=== PATIENT | female | born 1980 | race Caucasian/White ===

== ENCOUNTER 2022-06-19 07:49 | Emergency (ER) | payer SELFPAY ==
--- NOTE | 2022-06-19 07:50 | XR_ITS ---
WS: [id number] XR chest 1V portable [id number] REASON FOR EXAM: cp FINDINGS: Mild tortuosity the thoracic aorta. Normal heart size. Calcified granulomatous disease bilaterally. Flattening of the left hemidiaphragm contour with blunting of the left costophrenic angle. Presumed o ld post inflammatory change. No acute/subacute pulmonary parenchymal abnormality or pleural abnormality. No significant abnormality of the bony thorax. XR/XR chest 1V portable [id number] IMPRESSION: No acute chest abnormality.
[2022-06-19 07:58] VITALS: BP 136/83; PULSE 78; RESP 18; TEMP 36.5; O2SAT 100; BMI 26.4
--- NOTE | 2022-06-19 08:06 | ECG_ITS ---
[facility] Test Date: 2022-06-19 Pat Name: India Aburto Department: Room: Gender: Female It Sales Consultant: : 1980 Requested By: Spencer Ramos Order Number: [id number] Roby MD: Sumaya Narayanan M.D. Measurements Intervals [place] Rate: 79 P: -2 KS: 140 QRS: 78 QRSD: 90 T: 51 QT: 366 QTc: 422 Interpretive Statements SINUS RHYTHM WITH SINUS ARRHYTHMIA No previous ECG available for comparison Electronically Signed On 06-20-2022 0:16:48 CDT by Sumaya Narayanan M.D. [email or web address] Servicesmer[id number]
--- NOTE | 2022-06-19 08:16 | W.ED.CHESTPA ---
Documented by User: FREDDIE Jimenez 06/19/22 15:23 HPI - Chest Pain General: Chief Complaint: Chest Pain Stated Complaint: chest tightness Time Seen by Provider: 06/19/22 07:50 History of Present Illness: Patient is a 41-year-old female comes to the ED with chest pain. Patient has a history of factor V Leiden and pulmonary embolism. Chest pain started this morning while she was lying down in bed. Chest pain described as as a chest heaviness in the middle of chest. She rates the pain currently a 8 out of 10. Denies any improving or worsening factors. Endorses lightheadedness and palpitations. Patient injured her left calf while exercising approximately 4 days ago. Since injury, Denies being bedridden for the past couple days, but does endorse being less active for the past couple days. Patient does have medical marijuana card and uses that to help with her anxiety. denies fevers, shortness of breath, nausea/vomiting, bladder or bowel symptoms. Associated symptoms: Reports palpitations; Deny abdominal pain, dyspnea, fever(s), nausea or vomiting Review of Systems Const: Denies: fever(s), chills or fatigue Eyes: Denies: change in vision or eye discomfort ENMT: Denies: throat pain, odynophagia, nasal discharge or nasal congestion Card: Reports: chest pain, palpitations and lightheadedness; Denies: edema, swelling of feet/ankles, dyspnea on exertion or orthopnea Resp: Denies: dyspnea, productive cough or non-productive cough GI: Denies: abdominal pain, nausea, vomiting, diarrhea, constipation or hematochezia : Denies: flank pain, dysuria or hematuria Musc: Denies: neck pain, back pain or extremity swelling Skin/Breast: Denies: rash or new lesions Neuro: Denies: headache(s), numbness in extremities or weakness in extremities PFS ED PFSH: Medical History Factor 5 Leiden mutation, heterozygous Pulmonary embolism Surgical History No pertinent past surgical history Physical Exam Const: COMMON NORMALS: patient oriented x3 and alert GENERAL APPEARANCE: cooperative HENMT: COMMON NORMALS: normocephalic HEAD & SCALP: normocephalic MOUTH: Normal oral and palatal mucosa present THROAT: posterior oropharynx normal and uvula midline Neck/C-Spine: COMMON NORMALS: supple GENERAL: Yes normal visual inspection Resp: COMMON NORMALS: normal respiratory effort, No retractions, No use of accessory muscles and clear to auscultation bilaterally AUSCULTATION: clear to auscultation bilaterally Cardio: COMMON NORMALS: regular rate, regular rhythm, S1 normal heart sound present, S2 normal heart sound present, No gallops present (Cardio), No clicks present (Cardio), No murmurs present (Cardio) and Peripheral pulses 2+ throughout RATE: regular rate RHYTHM: regular rhythm HEART SOUNDS: S1 normal heart sound present and S2 normal heart sound present PERIPHERAL PULSES: Peripheral pulses 2+ throughout GI: COMMON NORMALS: Normal to inspection, nondistended, normoactive bowel sounds present, Soft to palpation, non-tender and no masses PALPATION: Yes Soft to palpation : COMMON NORMALS: Yes no CVA tenderness BLADDER/KIDNEY EXAM: Yes no CVA tenderness Back/Pelvis: COMMON NORMALS: no CVA tenderness Extremity: COMMON NORMALS: normal to inspection Neuro: COMMON NORMALS: patient oriented x3 SENSORIUM/ORIENTATION: Yes alert GAIT: Yes Normal gait present Skin: GENERAL SKIN EXAM: dry skin Course Vital Signs: Vital signs: Vital Signs Temperature 97.7 F 06/19/22 07:58 Pulse Rate 75 06/19/22 10:30 Respiratory Rate 14 06/19/22 10:30 Blood Pressure 119/71 06/19/22 10:30 Pulse Oximetry 98 06/19/22 10:30 Oxygen Delivery Me thod 06/19/22 10:30 MDM - Chest Pain Medical Decision Making Patient is a 41-year-old female comes to the ED with chest pain. Patient has a history of factor V Leiden and pulmonary embolism. Chest pain started this morning while she was lying down in bed. Chest pain described as as a chest heaviness in the middle of chest. She rates the pain currently a 8 out of 10. Denies any improving or worsening factors. Endorses lightheadedness and palpitations. Patient injured her left calf while exercising approximately 4 days ago. Since injury, Denies being bedridden for the past couple days, but does endorse being less active for the past couple days. Patient does have medical marijuana card and uses that to help with her anxiety. denies fevers, shortness of breath, nausea/vomiting, bladder or bowel symptoms. Vitals are stable. Exam is benign. CBC and CMP are unremarkable. D-dimer 1.33. hCG negative. Troponins negative. Chest x-ray showed no acute findings. Chest CTA showed no PE and no pneumonia. Patient was diagnosed with atypical chest pain and was stable for discharge home. I placed an order with case management for patient to be referred to get established with a primary care physician. Return to ED precautions given. Patient understood and agreed with plan. Lab Data I reviewed the patient's lab results. 06/19/22 08:15 06/19/22 08:15 Radiology Impressions Chest X-Ray 06/19/22 07:50 IMPRESSION: No acute chest abnormality. Chest CTA 06/19/22 08:42 IMPRESSION: 1. No pulmonary embolism. 2. No pneumonia. Laboratory Results WBC 6.0 10^3/uL (4.0-10.0) 06/19/22 08:15 RBC 4.63 10^6/uL (4.1-5.3) 06/19/22 08:15 Hgb 14.4 g/dL (11.5-15.3) 06/19/22 08:15 Hct 43.7 % (37.0-47.0) 06/19/22 08:15 MCV 94.4 fl (81-99) 06/19/22 08:15 MCH 31.1 pg (28.0-34.0) 06/19/22 08:15 MCHC 33.0 g/dL (30.0-36.0) 06/19/22 08:15 RDW 12.4 % (12.1-15.1) 06/19/22 08:15 Plt Count 236 10^3/cmm (130-400) 06/19/22 08:15 MPV 10.1 fL (7.4-10.4) 06/19/22 08:15 Neut % (Auto) 58.0 % 06/19/22 08:15 Lymph % (Auto) 32.4 % 06/19/22 08:15 Sampson % (Auto) 7.2 % 06/19/22 08:15 Eos % (Auto) 1.3 % 06/19/22 08:15 Baso % (Auto) 0.8 % 06/19/22 08:15 Neut # (Auto) 3.46 10^3/uL (1.8-7.7) 06/19/22 08:15 Lymph # (Auto) 1.9 10^3/uL (0.8-4.8) 06/19/22 08:15 Sampson # (Auto) 0.4 10^3/uL (0.2-0.9) 06/19/22 08:15 Eos # (Auto) 0.1 10^3/uL (0.0-0.8) 06/19/22 08:15 Baso # (Auto) 0.1 10^3/uL (0.0-0.1) 06/19/22 08:15 Nucleated RBC % (auto) 0 % 06/19/22 08:15 Nucleated RBCs # 0.0 /100WBC 06/19/22 08:15 D-Dimer 1.33 ug/mIFEU (0-0.59) H 06/19/22 08:15 Sodium 138 mmol/L (136-145) 06/19/22 08:15 Potassium 3.4 mmol/L (3.5-5.1) L 06/19/22 08:15 Chloride 100 mmol/L (98-107) 06/19/22 08:15 Carbon Dioxide 25 mmol/L (22-29) 06/19/22 08:15 Anion Gap 16.4 (5-19) 06/19/22 08:15 BUN 7 mg/dL (6-20) 06/19/22 08:15 Creatinine 0.8 mg/dL (0.5-0.9) 06/19/22 08:15 GFR Calculation 78.7 mL/min (90-130) L 06/19/22 08:15 Glucose 81 mg/dL (65-115) 06/19/22 08:15 Calculated Osmolality 283 mOsm/kg (285-295) L 06/19/22 08:15 Calcium 9.1 mg/dL (8.5-10.5) 06/19/22 08:15 Total Bilirubin 0.4 mg/dL (0.15-1.2) 06/19/22 08:15 AST 16 U/L (0-32) 06/19/22 08:15 ALT 14 U/L (0-33) 06/19/22 08:15 Alkaline Phosphatase 42 U/L (35-105) 06/19/22 08:15 Troponin T Baseline 6 ng/L (0-10) 06/19/22 08:15 Troponin T 120 Minute 6.00 ng/L (0-10) 06/19/22 10:24 Delta Troponin T 0 ABS# (0-10) 06/19/22 10:24 Total Protein 6.7 g/dL (6.6-8.7) 06/19/22 08:15 Albumin 4.2 g/dL (3.5-5.2) 06/19/22 08:15 Globulin 2.5 g/dL (1.3-4.6) 06/19/22 08:15 HCG, Qual Negative (Negative) 06/19/22 08:15 Discharge Plan Discharge Patient Disposition: Home Clinical Impression: Atypical chest pain Condition: Stable Prescriptions: No Action No Known Home Medications Discharge Orders: Discharge ED (Routine); Ordered 06/19/22 Ordered By: Spencer Ramos Discharge Diet: Regular Discharge Activity: Increase activity as tolerated Patient Instructions: Noncardiac Chest Pain (ED) Activity Restrictions/Additional Instructions: Follow-up with medical provider as directed. Case management should contact you in the next several days to set up an appointment with a primary care physician for follow-up. Return to the ER or your medical provider if condition worsens. Please read and understand discharge instructions. Thank you for choosing [facility] for your healthcare needs today. Please realize this is an emergency room and that we are providing you with a medical screening exam and this may not be complete and all inclusive of all the testing and or work up that you may need to determine your ailment or severity of your illness. It is very important that you follow up as instructed or that you return to the Emergency Department should you have concerns or if your condition changes or worsens in any way. Coding Level of Care Code ED Conference Manager for Chg Fwd Documented by User: Saleem Pepper DO 06/19/22 15:41 HPI - Chest Pain General: Chief Complaint: Chest Pain Stated Complaint: chest tightness Time Seen by Provider: 06/19/22 07:50 [facility] ED PFSH: Medical History Factor 5 Leiden mutation, heterozygous Pulmonary embolism Surgical History No pertinent past surgical history Course Vital Signs: Vital signs: Vital Signs Temperature 97.7 F 06/19/22 07:58 Pulse Rate 75 06/19/22 10:30 Respiratory Rate 14 06/19/22 10:30 Blood Pressure 119/71 06/19/22 10:30 Pulse Oximetry 98 06/19/22 10:30 Oxygen Delivery Me thod 06/19/22 10:30 MDM - Chest Pain Medical Decision Making Patient is a 41-year-old female comes to the ED with chest pain. Patient has a history of factor V Leiden and pulmonary embolism. Chest pain started this morning while she was lying down in bed. Chest pain described as as a chest heaviness in the middle of chest. She rates the pain currently a 8 out of 10. Denies any improving or worsening factors. Endorses lightheadedness and palpitations. Patient injured her left calf while exercising approximately 4 days ago. Since injury, Denies being bedridden for the past couple days, but does endorse being less active for the past couple days. Patient does have medical marijuana card and uses that to help with her anxiety. denies fevers, shortness of breath, nausea/vomiting, bladder or bowel symptoms. Vitals are stable. Exam is benign. CBC and CMP are unremarkable. D-dimer 1.33. hCG negative. Troponins negative. Chest x-ray showed no acute findings. Chest CTA showed no PE and no pneumonia. Patient was diagnosed with atypical chest pain and was stable for discharge home. I placed an order with case management for patient to be referred to get established with a primary care physician. Return to ED precautions given. Patient understood and agreed with plan. Chart reviewed and patient discussed with midlevel. Agree with assessment and plan. Lab Data 06/19/22 08:15 06/19/22 08:15 Radiology Impressions Chest X-Ray 06/19/22 07:50 IMPRESSION: No acute chest abnormality. Chest CTA 06/19/22 08:42 IMPRESSION: 1. No pulmonary embolism. 2. No pneumonia. Laboratory Results WBC 6.0 10^3/uL (4.0-10.0) 06/19/22 08:15 RBC 4.63 10^6/uL (4.1-5.3) 06/19/22 08:15 Hgb 14.4 g/dL (11.5-15.3) 06/19/22 08:15 Hct 43.7 % (37.0-47.0) 06/19/22 08:15 MCV 94.4 fl (81-99) 06/19/22 08:15 MCH 31.1 pg (28.0-34.0) 06/19/22 08:15 MCHC 33.0 g/dL (30.0-36.0) 06/19/22 08:15 RDW 12.4 % (12.1-15.1) 06/19/22 08:15 Plt Count 236 10^3/cmm (130-400) 06/19/22 08:15 MPV 10.1 fL (7.4-10.4) 06/19/22 08:15 Neut % (Auto) 58.0 % 06/19/22 08:15 Lymph % (Auto) 32.4 % 06/19/22 08:15 Sampson % (Auto) 7.2 % 06/19/22 08:15 Eos % (Auto) 1.3 % 06/19/22 08:15 Baso % (Auto) 0.8 % 06/19/22 08:15 Neut # (Auto) 3.46 10^3/uL (1.8-7.7) 06/19/22 08:15 Lymph # (Auto) 1.9 10^3/uL (0.8-4.8) 06/19/22 08:15 Sampson # (Auto) 0.4 10^3/uL (0.2-0.9) 06/19/22 08:15 Eos # (Auto) 0.1 10^3/uL (0.0-0.8) 06/19/22 08:15 Baso # (Auto) 0.1 10^3/uL (0.0-0.1) 06/19/22 08:15 Nucleated RBC % (auto) 0 % 06/19/22 08:15 Nucleated RBCs # 0.0 /100WBC 06/19/22 08:15 D-Dimer 1.33 ug/mIFEU (0-0.59) H 06/19/22 08:15 Sodium 138 mmol/L (136-145) 06/19/22 08:15 Potassium 3.4 mmol/L (3.5-5.1) L 06/19/22 08:15 Chloride 100 mmol/L (98-107) 06/19/22 08:15 Carbon Dioxide 25 mmol/L (22-29) 06/19/22 08:15 Anion Gap 16.4 (5-19) 06/19/22 08:15 BUN 7 mg/dL (6-20) 06/19/22 08:15 Creatinine 0.8 mg/dL (0.5-0.9) 06/19/22 08:15 GFR Calculation 78.7 mL/min (90-130) L 06/19/22 08:15 Glucose 81 mg/dL (65-115) 06/19/22 08:15 Calculated Osmolality 283 mOsm/kg (285-295) L 06/19/22 08:15 Calcium 9.1 mg/dL (8.5-10.5) 06/19/22 08:15 Total Bilirubin 0.4 mg/dL (0.15-1.2) 06/19/22 08:15 AST 16 U/L (0-32) 06/19/22 08:15 ALT 14 U/L (0-33) 06/19/22 08:15 Alkaline Phosphatase 42 U/L (35-105) 06/19/22 08:15 Troponin T Baseline 6 ng/L (0-10) 06/19/22 08:15 Troponin T 120 Minute 6.00 ng/L (0-10) 06/19/22 10:24 Delta Troponin T 0 ABS# (0-10) 06/19/22 10:24 Total Protein 6.7 g/dL (6.6-8.7) 06/19/22 08:15 Albumin 4.2 g/dL (3.5-5.2) 06/19/22 08:15 Globulin 2.5 g/dL (1.3-4.6) 06/19/22 08:15 HCG, Qual Negative (Negative) 06/19/22 08:15 Discharge Plan Discharge Patient Disposition: Home Clinical Impression: Atypical chest pain Condition: Stable Prescriptions: No Action No Known Home Medications Discharge Orders: Discharge ED (Routine); Ordered 06/19/22 Ordered By: Spencer Ramos Discharge Diet: Regular Discharge Activity: Increase activity as tolerated Patient Instructions: Noncardiac Chest Pain (ED) Activity Restrictions/Additional Instructions: Follow-up with medical provider as directed. Case management should contact you in the next several days to set up an appointment with a primary care physician for follow-up. Return to the ER or your medical provider if condition worsens. Please read and understand discharge instructions. Thank you for choosing [facility] for your healthcare needs today. Please realize this is an emergency room and that we are providing you with a medical screening exam and this may not be complete and all inclusive of all the testing and or work up that you may need to determine your ailment or severity of your illness. It is very important that you follow up as instructed or that you return to the Emergency Department should you have concerns or if your condition changes or worsens in any way. Coding Level of Care Code ED Conference Manager for Lis Laurent
[2022-06-19 08:23] LABS: Basophils # 0.1 10^3/uL (0.0-0.1); Basophils % 0.8 %; Eosinophils # 0.1 10^3/uL (0.0-0.8); Eosinophils % 1.3 %; Hematocrit 43.7 % (37.0-47.0); Hemoglobin 14.4 g/dL (11.5-15.3); Lymphocytes # 1.9 10^3/uL (0.8-4.8); Lymphocytes % 32.4 %; Mean Corpuscular Hemoglobin 31.1 pg (28.0-34.0); Mean Corpuscular Volume 94.4 fl (81-99); Mean Platelet Volume 10.1 fL (7.4-10.4); Monocytes # 0.4 10^3/uL (0.2-0.9); Monocytes % 7.2 %; Neutrophils # 3.46 10^3/uL (1.8-7.7); Nucleated Red Blood Cells % 0 %; Platelet Count 236 10^3/cmm (130-400); Red Blood Count 4.63 10^6/uL (4.1-5.3); Red Cell Distribution Width 12.4 % (12.1-15.1)
[2022-06-19] MEDS: aspirin 81 mg Chew Tablet 324 MG PO (08:26)
[2022-06-19 08:29] VITALS: RESP 16
[2022-06-19 08:40] LABS: D Dimer 1.33 ug/mIFEU (0-0.59)
--- NOTE | 2022-06-19 08:42 | CT_ITS ---
WS: [id number] CT CHEST ANGIOGRAPHY WITH REFORMATS HISTORY: chest pain, hx-factor V Leiden TECHNIQUE: Contiguous axial images are obtained through the chest during arterial injection of intrav enous contrast. Images are reconstructed to evaluate the pulmonary arteries. MIP imaging also reviewe d. All CT scans at [facility] use at least one of these dose optimization techniques: automat ed exposure control; mA and/or kV adjustment per patient size (includes targeted exams where dose is matched to clinical indication); or iterative reconstruction. CONTRAST: Omnipaque 350; 67 mL IV. DLP: 175.32 mGy.cm COMPARISON: None available. No filling defects in the pulmonary arterial system. Normal size pulmonary artery. Normal size aorta. No RIGHT heart strain. No pericardial or pleural effusions. No mediastinal or hilar adenopathy. Lungs are clear. No pneumonia. Subsegmental atelectasis LEFT lung base. Small hiatal hernia. Adrenal glands are poorly visualized but no mass is identified. CT/CT angio chest PE protcl [id number] IMPRESSION: 1. No pulmonary embolism. 2. No pneumonia.
[2022-06-19 08:44] LABS: HCG, Serum Qual Negative (Negative)
[2022-06-19 08:49] LABS: Alanine Aminotransferase 14 U/L (0-33); Albumin Level 4.2 g/dL (3.5-5.2); Alkaline Phosphatase 42 U/L (35-105); Anion Gap 16.4 (5-19); Aspartate Amino Transferase 16 U/L (0-32); Blood Urea Nitrogen 7 mg/dL (6-20); Calcium 9.1 mg/dL (8.5-10.5); Carbon Dioxide 25 mmol/L (22-29); Chloride 100 mmol/L (98-107); Globulin 2.5 g/dL (1.3-4.6); Glomerular Filtration Rate 78.7 mL/min (90-130); Glucose 81 mg/dL (65-115); Osmolality Calculated 283 mOsm/kg (285-295); Potassium 3.4 mmol/L (3.5-5.1); Sodium 138 mmol/L (136-145); Total Bilirubin 0.4 mg/dL (0.15-1.2); Total Protein 6.7 g/dL (6.6-8.7)
[2022-06-19 08:51] LABS: Troponin(5th) Baseline 6 ng/L (0-10)
[2022-06-19] MEDS: iohexol 350 mg/mL 500 mL Btl (per mL) IV (09:43)
[2022-06-19 10:30] VITALS: BP 119/71; PULSE 75; RESP 14; O2SAT 98
[2022-06-19 11:10] LABS: Troponin 5 2HR Delta 0 ABS# (0-10)
--- NOTE | 2022-06-20 16:39 | DCPLANNER ---
office services manager had message to speak with patient about getting established with a primary care physician. Patient stated that she would like to get established with [facility]. Patient was given the phone number to the clinic, will call and schedule an appointment.
== END 2022-06-19 11:19 | disposition home or self-care (01) ==
PROVIDERS: Emergency Provider Physician Assistant
DX: R07.89 Other chest pain (principal); D68.51 Activated protein C resistance; Z86.711 Personal history of pulmonary embolism
CPT/HCPCS: 71045; 71275; 80053; 84484; 84703; 85025; 85378; 93005; 99285; Q9967

== ENCOUNTER 2022-08-09 14:51 | Oncology outpatient (recurring) (ONCR) | payer SELFPAY | END 2022-09-06 23:59 | disposition home or self-care (01) | PROVIDERS: Visit Provider Internal Medicine Medical Oncology | DX: Z53.9 Procedure and treatment not carried out, unspecified reason (principal) ==